=== PATIENT | female | born 1960 | race Caucasian/White ===

== ENCOUNTER 2017-01-06 07:43 | Emergency (ER) | payer OTHER ==
[2017-01-06 08:10] VITALS: BP 123/79
--- NOTE | 2017-01-06 08:36 | RAD ---
HISTORY: Lateral left foot pain COMPARISONS: None VIEWS: 3, Frontal, lateral, and oblique views of the left foot FINDINGS: BONE DENSITY: Normal. BONES: There is no displaced fracture. There are calcaneal enthesophytes JOINTS: There is no arthropathy. ALIGNMENT: There is no dislocation. SOFT TISSUES: Unremarkable. OTHER FINDINGS: None. IMPRESSION: HEEL SPURS. NO ACUTE OSSEOUS INJURY. IF SYMPTOMS PERSIST, RECOMMEND REPEAT IMAGING.
--- NOTE | 2017-01-06 09:18 | UC ---
Lower Extremity/Ankle HPI - HPI Summary HPI Summary: PT HAS HAD LEFT FOOT PAIN FOR 2-3 WEEKS. NO KNOWN MECHANISM OF INJURY. ON 12/25 DECIDED TO WEAR LOW HEELS AND WHILE WALKING HEARD AND FELT A "POP". PAIN HAS BEEN WORSENING AND THE "POPPING" IS HAPPENING RECURRENTLY. VERY PAINFUL WHEN IT HAPPENS. - History of Current Complaint Chief Complaint: UCLowerExtremity Stated Complaint: FOOT INJURY Time Seen by Provider: 01/06/17 08:11 Hx Obtained From: Patient Onset/Duration: Gradual Onset, Lasting Weeks, Still Present Severity Initially: Moderate Severity Currently: Moderate Pain Intensity: 9 Pain Scale Used: 0-10 Numeric Aggravating Factor(s): Standing, Ambulation Alleviating Factor(s): Rest, Elevation Able to Bear Weight: Yes - Allergies/Home Medications Allergies/Adverse Reactions: Allergies Allergy/AdvReac Type Severity Reaction Status Date / Time Doxycycline Allergy Intermediate Hives Verified 11/18/16 10:46 Tetracyclines & Related Allergy Intermediate Hives Verified 11/18/16 10:46 Loracarbef [From Lorabid] Allergy Rash Verified 11/18/16 10:46 Home Medications: Home Medications Diphenhydramine-Acetaminophen [Tylenol Pm Extra Strength 500-25 mg] 3 tab PO BEDTIME 01/06/17 [History Confirmed 01/06/17] PMH/Surg Hx/FS Hx/Imm Hx Endocrine History Of: Denies: Diabetes, Thyroid Disease Cardiovascular History Of: Denies: Cardiac Disorders, Hypertension Respiratory History Of: Reports: Pneumonia Denies: COPD, Asthma GI/ History Of: Reports: Gall Bladder Disease Denies: Ulcer Cancer History Of: Denies: Breast Cancer - Surgical History Surgical History: Yes Surgery Procedure, Year, and Place: cyst removed from [address] gallbladder 1989 [facility]. eye surgery 2006 [facility]. EYE SURGERY EVERY 3 MONTHS - Family History Known Family History: Negative: Hypertension - Social History Alcohol Use: Occasionally Substance Use Type: None Substance Use Comment - Amount & Last Used: vicodin Smoking Status (MU): Never Smoked Tobacco Review of Systems Constitutional: Negative Skin: Negative Respiratory: Negative Cardiovascular: Negative Gastrointestinal: Negative Musculoskeletal: Arthralgia, Decreased ROM, Edema All Other Systems Reviewed And Are Negative: Yes Physical Exam Triage Information Reviewed: Yes Appearance: Well-Appearing, No Pain Distress, Well-Nourished Vital Signs: Initial Vital Signs Temp 98.2 F 01/06/17 08:01 Pulse 59 01/06/17 08:01 Resp 18 01/06/17 08:01 BP 123/79 01/06/17 08:01 Pulse Ox 100 01/06/17 08:01 Vital Signs Reviewed: Yes Eyes: Positive: Conjunctiva Clear ENT: Positive: Hearing grossly normal Neck: Positive: Supple Respiratory: Positive: No respiratory distress, No accessory muscle use Cardiovascular: Positive: Pulses Normal Abdomen Description: Positive: Soft Musculoskeletal: Positive: Edema @ - LEFT FOOT MILD EDEMA., Other: - TTP LEFT LATERAL FOREFOOT. Neurological: Positive: Alert Psychological: Positive: Age Appropriate Behavior Skin: Negative: rashes Diagnostics - Radiology LEFT FOOT XRAY Xray Interpretation: No Acute Changes Radiology Interpretation Completed By: Radiologist Lower Extremity Course/Dx - Differential Dx/Diagnosis Differential Diagnosis/HQI/PQRI: Contusion, Gout, Strain Provider Diagnoses: LEFT FOOT SPRAIN Discharge - Discharge Plan Condition: Stable Disposition: HOME Patient Education Materials: Foot Sprain (ED) Referrals: Dana Lujan MD [Primary Care Provider] - If Needed Shahab Patel MD [Medical Doctor] - 1 Week Additional Instructions: XRAYS SHOWED HEEL SPURS BUT OTHERWISE UNREMARKABLE TODAY. REST, ICE, COMPRESS ELEVATE. CALL [facility] FOR A FOLLOW-UP APPT FOR FURTHER EVALUATION IF YOU DO NOT IMPROVE WITH DEDICATED REST OVER THE NEXT 2-3 DAYS.
== END 2017-01-06 09:30 | disposition home or self-care (01) ==
LOC: UCEAST 07:43
DX: S93.602A Unspecified sprain of left foot, initial encounter (principal); X58.XXXA Exposure to other specified factors, initial encounter; Y93.9 Activity, unspecified; Y92.9 Unspecified place or not applicable; Z88.1 Allergy status to other antibiotic agents; Z90.49 Acquired absence of other specified parts of digestive tract
CPT/HCPCS: 99212; G0463